=== PATIENT | male | born 2005 | race Caucasian/White ===

== ENCOUNTER 2024-06-06 22:36 | Emergency (ER) | payer OTHER ==
[~2024-06-06] VITALS: Ht 177.8 cm; Wt 75.0 kg
[2024-06-06 22:40] VITALS: TEMP 98.2
[2024-06-06] MEDS ORDERED: Ondansetron 4 MG/2 ML VIAL IV ONE (23:00)
[2024-06-06] MEDS ORDERED: NS 1,000 ML IV ONE (23:00)
[2024-06-06 23:15] LABS: BASO # 0.1 K/mm3 (0.0-0.2); BASO % 0.5 % (0.0-2.0); EOS # 0.1 K/mm3 (0.0-0.7); EOS % 0.6 % (0.0-4.0); GRAN # 6.5 K/mm3 (1.4-6.5); GRAN % 51.6 % (42.2-75.2); HEMATOCRIT 43.7 % (36.0-47.0); HEMOGLOBIN 13.5 g/dl (12.5-16.1); LYMPH % 39.7 % (20.0-51.0); MEAN CELL VOLUME 61 fl (80.0-95.0); MEAN CORPUSCULAR HEMOGLOBIN 19 pg (26-32); MEAN CORPUSCULAR HGB CONC 31 g/dl (33.0-37.0); MONO # 0.9 K/mm3 (0.1-0.6); MONO % 7.2 % (1.7-9.3); PLATELET COUNT 237 K/mm3 (130-400); RED BLOOD COUNT 7.12 M/mm3 (4.20-5.60); REDCELL DISTRIBUTION WIDTH-CV 18.7 % (11.5-14.5)
[2024-06-06 23:32] LABS: ALANINE AMINOTRANSFERASE 22 U/L (0-55); ALBUMIN 4.3 g/dL (3.5-5.0); ALKALINE PHOSPHATASE 72 U/L (40-150); ANION GAP 14 mmol/L (7-16); AST,SGOT 23 U/L (5-34); BILIRUBIN,TOTAL 0.7 mg/dL (0.2-1.2); BLOOD UREA NITROGEN 15 mg/dL (9-21); CALCIUM 8.7 mg/dL (8.4-10.2); CHLORIDE 104 mEq/L (98-107); CREATININE, serum 1.22 mg/dL (0.72-1.25); GLUCOSE 133 mg/dL (70-99); LIPASE 21 U/L (8-78); SODIUM 139 mEq/L (136-145); TOTAL PROTEIN 7.5 g/dl (6.2-8.1)
[2024-06-06 23:40] LABS: TROPONIN-I < 0.010 ng/mL (0.00-0.033)
[2024-06-06] MEDS ORDERED: droPERidol 2.5 MG/ML 2 ML VIAL IV ONE (23:45)
[2024-06-07] MEDS ORDERED: Home Ondansetron ODT 4 MG #2 ODT/PACK PO ONE (00:15)
[2024-06-07 00:23] VITALS: BP 137/87; PULSE 78
== END 2024-06-07 00:31 | disposition home or self-care (01) ==
LOC: COL.ER 22:36
PROVIDERS: Nurse Practitioner Primary Care
DX: F12.929 Cannabis use, unspecified with intoxication, unspecified (principal)
CPT/HCPCS: J1790; J2405; J7030